=== PATIENT | female | born 1950 | race Caucasian/White ===

== ENCOUNTER 2017-12-22 08:32 | Day surgery (SDC) | payer BC ==
[2017-12-19 14:50] VITALS: BMI 29.0
[2017-12-22 09:01] VITALS: TEMP 97.8
[2017-12-22] MEDS ORDERED: PROPOFOL 20 ML ONE ×2 (09:16)
[2017-12-22 10:41] VITALS: BP 122/63; PULSE 82
--- NOTE | 2017-12-22 11:55 | PROC ---
Endoscopy Procedure Endoscopy procedure completed. Please see scanned procedure report.
--- NOTE | 2017-12-22 11:55 | PROC ---
Endoscopy Procedure Endoscopy procedure completed. Please see scanned procedure report.
--- NOTE | 2017-12-24 17:16 | PATH ---
Surgical Pathology Report Patient Name: JUSTIN STEELE [facility]. Rec. #: [id number] /Age/Gender: 1950 (Age: 67) / F Account: [id number] Location: [facility]-ENDOSCOPY Taken: 12/22/2017 Received: 12/22/2017 Reported: 12/24/2017 Physicians: Bk Shirley M.D. Specimen(s) Received BX POLYP DESCENDING COLON Clinical History Preoperative diagnosis: Colon screening Postoperative diagnosis: Descending colon polyp, diverticulosis Final Diagnosis DESCENDING COLON, POLYP, BIOPSY: TUBULAR ADENOMA. Electronically Signed Marquita Hurtado M.D. Gross Description Received in formalin, labeled "biopsy polyp descending colon" are 2 plasencia, irregular portions of soft tissue measuring 0.1 and 0.3 cm. in greatest dimension. The specimens are submitted in toto in one cassette. 12/22/201712/22/2017
== END 2017-12-22 11:40 | disposition home or self-care (01) ==
LOC: JASU-ENDO 08:32
PROVIDERS: ATTEND Internal Medicine Gastroenterology
PROC: 0DBM8ZX Excision of Descending Colon, Via Natural or Artificial Opening Endoscopic, Diagnostic (ICD-10-PCS; principal; 2017-12-22 09:00)
DX: Z12.11 Encounter for screening for malignant neoplasm of colon (principal); D12.4 Benign neoplasm of descending colon; K57.30 Diverticulosis of large intestine without perforation or abscess without bleeding
CPT/HCPCS: 88305-TC